=== PATIENT | male | born 1945 | race Caucasian/White ===

== ENCOUNTER 2019-04-10 09:32 | Inpatient (IN) | payer MEDICARE, OTHER ==
[~2019-04-10] VITALS: Ht 182.9 cm; Wt 98.8 kg
[2019-04-12 11:15] VITALS: BP 150/92
== END 2019-04-12 11:30 | disposition home or self-care (01) | DRG 460 ==
LOC: ORIP 12:28 → 4NOR 18:21 → DCLOUNGE 04-12 11:20
PROVIDERS: ADMIT Neurological Surgery; ATTEND Neurological Surgery
PROC: 0SG0071 Fusion of Lumbar Vertebral Joint with Autologous Tissue Substitute, Posterior Approach, Posterior Column, Open Approach (ICD-10-PCS; principal; 2019-04-10)
PROC: 01NB0ZZ Release Lumbar Nerve, Open Approach (ICD-10-PCS; 2019-04-10)
PROC: 4A11X4G Monitoring of Peripheral Nervous Electrical Activity, Intraoperative, External Approach (ICD-10-PCS; 2019-04-10)
DX: M48.061 Spinal stenosis, lumbar region without neurogenic claudication (principal); M51.16 Intervertebral disc disorders with radiculopathy, lumbar region; M53.2X6 Spinal instabilities, lumbar region; M19.90 Unspecified osteoarthritis, unspecified site; F17.200 Nicotine dependence, unspecified, uncomplicated; E03.9 Hypothyroidism, unspecified; M40.295 Other kyphosis, thoracolumbar region; K21.9 Gastro-esophageal reflux disease without esophagitis; G89.29 Other chronic pain; E11.9 Type 2 diabetes mellitus without complications; Z82.61 Family history of arthritis; Z71.6 Tobacco abuse counseling
CPT/HCPCS: 36415; 72100; 72131; 80048; 82040; 82962; 85025; C1713; C1729; G0378; J0690; J1100; J1650; J2405; J2704; J2710; J3010; J3370; J0330; J3480; J7120